=== PATIENT | male | born 1970 | race Caucasian/White ===

== ENCOUNTER 2022-08-01 15:03 | Outpatient (CLI) | payer BC, SELFPAY ==
[2022-08-01 15:43] LABS: Strep A DNA Probe* NOT DETECTED (Not Detectd)
== END 2022-08-01 15:04 | disposition home or self-care (01) ==
LOC: NFLDUCREF 15:03
PROVIDERS: PCP Physician Assistant Medical; Visit Provider Nurse Practitioner Family
DX: J02.9 Acute pharyngitis, unspecified (principal)
CPT/HCPCS: 87651

== ENCOUNTER 2024-02-09 15:16 | Outpatient (RCR) | payer BC, SELFPAY | END 2024-06-08 23:59 | disposition home or self-care (01) | PROVIDERS: PCP Physician Assistant Medical; Visit Provider Family Medicine Sports Medicine | DX: M54.12 Radiculopathy, cervical region (principal); M54.2 Cervicalgia; Z51.89 Encounter for other specified aftercare | CPT/HCPCS: 97110; 97161 ==

== ENCOUNTER 2025-05-17 15:52 | Outpatient (CLI) | payer BC, SELFPAY ==
[2025-05-24 09:47] LABS: Pinworm NEGATIVE
== END 2025-05-17 15:53 | disposition home or self-care (01) ==
PROVIDERS: PCP Physician Assistant Medical; Visit Provider Physician Assistant Medical
DX: K62.89 Other specified diseases of anus and rectum (principal)
CPT/HCPCS: 80053; 84443; 87172

== ENCOUNTER 2025-07-03 10:50 | Outpatient (CLI) | payer BC, SELFPAY | END 2025-07-03 10:51 | disposition home or self-care (01) | PROVIDERS: PCP Physician Assistant Medical; Visit Provider Physician Assistant Medical | DX: Z00.00 Encounter for general adult medical examination without abnormal findings (principal); R53.83 Other fatigue; R73.09 Other abnormal glucose | CPT/HCPCS: 80061; 80076; 82306; 82607; G0103 ==